=== PATIENT | male | born 1945 | race Caucasian/White ===

== ENCOUNTER → 2017-03-11 | Day surgery (SDC) | payer MEDICARE, BC, MEDICAID ==
[~2017-03-11] VITALS: Ht 175.3 cm; Wt 102.0 kg
[~2017-03-11] MED LIST: ACYCLOVIR400 MG PO; AMOXIL (BID DO875 MG PO; ASPIRIN LO-DOSE81 MG PO; COREG6.25 MG PO; DEXAMETHASONE4 MG PO; DUONEB INH; EFFEXOR XR75 MG PO; FLOMAX0.4 MG PO; GLUCOPHAGE500 MG PO; IRON325 M1 PO; LIPITOR40 MG PO; LORTAB 5-325 M1 EACH PO; MAALOX ADVANCE355 ML PO; MOBIC15 MG PO; PERIDEX15 ML PO; PRILOSEC20 MG PO; REVLIMID25 MG PO; SURFAK240 MG PO; TYLENOL325 MG PO
--- NOTE | ~2017-03-11 | OR ---
PATIENT'S NAME: KAITLIN SALGADO [facility] AGE: 71 Y [address] ROOM: [place] [id number] LOCATION: [facility] [place] ADMIT DATE: 03/11/2017 OR/Procedure Report DISCHARGE DATE: FAMILY PHYSICIAN: Luis Donovan MD ATTENDING PHYSICIAN: Dino Singleton SURGEON: Dino Singleton MD/DEON RN PSYCHIATRIC: DATE OF PROCEDURE: 03/11/2017 PREOPERATIVE DIAGNOSIS: Nonrestorable teeth. POSTOPERATIVE DIAGNOSIS: Nonrestorable teeth. PROCEDURE: Surgical removal of 11 teeth. BLOOD LOSS: Minimal. OPERATIVE SUMMARY: After adequate IV sedation and local anesthetic, a full- thickness mucoperiosteal flap was raised in the anterior mandibular alveolar ridge and maxillary alveolar ridge. Teeth numbers 5,7, 8,9,10,12,13,23,24, 25 and 28 were removed with forceps and elevators without difficulty. Excess bony prominences were smoothed using rongeurs. Excess soft tissue was sharply excised. Areas were irrigated with sterile saline closed with a running interlocking 3-0 chromic suture. The patient was taken to the recovery room in stable condition. He did receive 900 mg of Cleocin intraoperatively and a week of amoxicillin p.o. postoperatively and Sinemet. DINO SINGLETON MD/DEON MGT/modl /[id number] d: t: 03/12/17 0918, OPERATIVE SUMMARY
[2017-03-11 12:09] LABS: HEMATOCRIT 29.1 % (37.0-53.0); HEMOGLOBIN 9.2 g/dL (11.0-16.0); MCH 31.8 pg (27.0-34.0); MCHC 31.6 gm/dL (32.0-36.5); MCV 100.7 fl (83.0-98.0); MPV 10.3 fl (9.4-12.4); PLATELET COUNT 181 K/uL (150-450); RBC 2.89 M/uL (3.50-5.50); RDW-CV 20.8 % (11.9-14.6); WBC 7.6 K/uL (4.0-11.0)
[2017-03-11 12:16] LABS: INR - (THERAPEUTIC) 0.95 (0.92-1.07)
[2017-03-11 12:47] LABS: LYMPHOCYTE # 0.6 K/uL (0.8-4.0); LYMPHOCYTE % 8 %; MONOCYTE # 0.7 K/uL (0.0-1.0)
[2017-03-11 12:50] LABS: ABSOLUTE NEUTROPHIL CT (ANC) 5.4 K/uL (1.4-9.0); BANDED NEUTROPHIL # 2.2 K/uL (0.0-0.1); BANDED NEUTROPHILS % 29 %; SEGMENTED NEUTROPHIL # 3.2 K/uL (1.4-9.0); SEGMENTED NEUTROPHIL % 42 %
== END | disposition disaster alternative care site (69) ==
LOC: GPOC 03-10 10:00 → GSDC 10:00
PROVIDERS: Surgery
PROC: 0CRX0J1 Replacement of Lower Tooth, Multiple, with Synthetic Substitute, Open Approach (ICD-10-PCS; principal; 2017-03-11)
PROC: 0CRW0J1 Replacement of Upper Tooth, Multiple, with Synthetic Substitute, Open Approach (ICD-10-PCS; 2017-03-11)
DX: K08.89 Other specified disorders of teeth and supporting structures (principal); I25.10 Atherosclerotic heart disease of native coronary artery without angina pectoris; I35.0 Nonrheumatic aortic (valve) stenosis; I10 Essential (primary) hypertension; E11.9 Type 2 diabetes mellitus without complications; J44.9 Chronic obstructive pulmonary disease, unspecified; G47.33 Obstructive sleep apnea (adult) (pediatric); F41.9 Anxiety disorder, unspecified; F32.9 Major depressive disorder, single episode, unspecified; K21.9 Gastro-esophageal reflux disease without esophagitis; Z79.82 Long term (current) use of aspirin; Z79.899 Other long term (current) drug therapy
CPT/HCPCS: J7030